=== PATIENT | female | born 1980 | race Caucasian/White ===

== ENCOUNTER 2020-07-19 06:04 | Emergency (ER) | payer OTHER ==
[~2020-07-19] VITALS: Ht 172.7 cm; Wt 86.2 kg
[2020-07-19] MEDS ORDERED: ACETAMINOPHEN 500 MG TAB PO ONE (06:30)
[2020-07-19 07:20] VITALS: BP 125/70
== END 2020-07-19 07:51 | disposition home or self-care (01) ==
LOC: ER 06:04 → EDBD 06:04 → ER 07:44
DX: S16.1XXA Strain of muscle, fascia and tendon at neck level, initial encounter (principal); S00.81XA Abrasion of other part of head, initial encounter; V49.9XXA Car occupant (driver) (passenger) injured in unspecified traffic accident, initial encounter; Y93.89 Activity, other specified; Y92.89 Other specified places as the place of occurrence of the external cause; Y99.8 Other external cause status
CPT/HCPCS: 70450; 72040